=== PATIENT | female | born 1990 | race Caucasian/White ===

== ENCOUNTER 2021-09-11 13:24 | Outpatient (CLI) | payer OTHER, SELFPAY | END 2021-09-11 13:25 | disposition home or self-care (01) | LOC: WOUND 13:27 | PROVIDERS: PCP Family Medicine; Visit Provider Nurse Practitioner Family | DX: I83.028 Varicose veins of left lower extremity with ulcer other part of lower leg (principal); I87.332 Chronic venous hypertension (idiopathic) with ulcer and inflammation of left lower extremity; L97.825 Non-pressure chronic ulcer of other part of left lower leg with muscle involvement without evidence of necrosis; L03.116 Cellulitis of left lower limb | CPT/HCPCS: 11043; 99202 ==

== ENCOUNTER 2021-09-11 14:55 | Outpatient (CLI) | payer OTHER, SELFPAY ==
[2021-09-11 15:34] LABS: Basophils Absolute Auto 0.04 K/uL (0.00-0.30); Basophils Percent Auto 0.4 % (0.0-3.0); Eosinophils Absolute Auto 0.44 K/uL (0.00-0.50); Hematocrit 39.9 % (33.0-51.0); Hemoglobin* 13.1 gm/dL (12.0-16.0); Immature Granulocytes Abs Auto 0.11 K/uL (0.00-0.30); Lymphocytes Absolute Auto 2.91 K/uL (0.90-2.90); Lymphocytes Percent Auto 26.5 % (20-44); Mean Corpuscular HGB Conc 33 gm/dL (32-36); Mean Corpuscular Hemoglobin 30 pg (26-34); Mean Corpuscular Volume 91 fL (80-100); Monocytes Percent Auto 5.8 % (0.0-11.0); Neutrophils Absolute Auto 6.85 K/uL (1.7-7.0); Neutrophils Percent Auto 62.3 % (42.0-72.0); Platelet Count* 374 K/uL (140-440); RDW Coefficient of Variation % 12.8 % (11.5-15.5); Slide Review Reflex No; White Blood Count* 10.99 K/uL (4.50-11.00)
[2021-09-11 15:47] LABS: Hemoglobin A1C* 5.64 % (0-5.6)
[2021-09-11 15:55] LABS: Chloride* 104 mmol/L (96-114); Sodium* 137 mmol/L (135-149)
[2021-09-11 15:56] LABS: Potassium* 4.3 mmol/L (3.6-5.1)
[2021-09-11 15:58] LABS: Creatinine* 0.6 mg/dL (0.5-1.5); Estimated Glomerular Filt Rate 125 ml/min
[2021-09-11 15:59] LABS: Blood Urea Nitrogen* 15 mg/dL (5-24); Calcium* 9.1 mg/dL (8.4-10.6); Carbon Dioxide* 26 mmol/L (20-32); Glucose* 101 mg/dL (60-115)
[2021-09-11 16:02] LABS: C Reactive Protein* 2.7 mg/dL (0.5-1.0)
[2021-09-11 16:34] LABS: Ferritin* 61.3 ng/mL (6.24-137.0)
[2021-09-15 10:06] LABS: Prealbumin 20.2 mg/dL (20.0-40.0)
== END 2021-09-11 14:56 | disposition home or self-care (01) ==
PROVIDERS: PCP Family Medicine; Visit Provider Nurse Practitioner Family
DX: L97.223 Non-pressure chronic ulcer of left calf with necrosis of muscle (principal)
CPT/HCPCS: 36415; 80048; 82728; 83036; 84134; 84630; 85025; 86140; 87070; 87186

== ENCOUNTER 2021-09-18 13:28 | Outpatient (CLI) | payer OTHER, SELFPAY ==
--- NOTE | 2021-09-18 15:00 | CRLHL7_ITS ---
For Patients: As a result of the Cures Act, medical imaging exams and procedure reports are released immediately into your electronic medical record. You may view this report before your referring provider. If you have questions, please contact your health care provider. 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 Comparison: X-rays 01/16/2021 Findings: There is a soft tissue ulcer at the lateral aspect of the distal calf extending over a length of 3.0 cm and a depth of 0.7 cm. No soft tissue gas. Skin thickening noted along with subcutaneous edema. No fluid collection or abscess. No abnormal density within the fascial layers to suggest fasciitis. Chronic densities within the anterior subcutaneous fat. No fracture or osteochondral defect. No destructive osseous lesion or fracture. Impression: Lateral distal calf soft tissue ulcer with adjacent cellulitis. No osteomyelitis. No abscess. Please note that all CT scans at this facility use dose modulation, iterative reconstruction, and/or weight-based dosing when appropriate to reduce radiation dose to as low as reasonably achievable. Dictated by Jasen Acuna MD @ 09/19/2021 9:03:40 AM (Electronically Signed)
== END 2021-09-18 13:29 | disposition home or self-care (01) ==
PROVIDERS: PCP Family Medicine; Visit Provider Nurse Practitioner Family
DX: I83.022 Varicose veins of left lower extremity with ulcer of calf (principal); L97.223 Non-pressure chronic ulcer of left calf with necrosis of muscle; L03.116 Cellulitis of left lower limb
CPT/HCPCS: 11043; 73700

== ENCOUNTER 2021-09-18 16:23 | Outpatient (CLI) | payer OTHER, SELFPAY | END 2021-09-18 16:24 | disposition home or self-care (01) | LOC: LAB 16:24 | PROVIDERS: PCP Family Medicine; Visit Provider Nurse Practitioner Family | DX: L97.223 Non-pressure chronic ulcer of left calf with necrosis of muscle (principal) | CPT/HCPCS: 87070; 87186 ==

== ENCOUNTER 2021-09-25 13:27 | Outpatient (CLI) | payer OTHER, SELFPAY | END 2021-09-25 13:28 | disposition home or self-care (01) | LOC: WOUND 13:27 | PROVIDERS: PCP Family Medicine; Visit Provider Nurse Practitioner Family | DX: I87.332 Chronic venous hypertension (idiopathic) with ulcer and inflammation of left lower extremity (principal); L97.223 Non-pressure chronic ulcer of left calf with necrosis of muscle | CPT/HCPCS: 11043 ==

== ENCOUNTER 2021-10-02 13:26 | Outpatient (CLI) | payer OTHER, SELFPAY | END 2021-10-02 13:27 | disposition home or self-care (01) | LOC: WOUND 13:26 | PROVIDERS: PCP Family Medicine; Visit Provider Nurse Practitioner Family | DX: I87.332 Chronic venous hypertension (idiopathic) with ulcer and inflammation of left lower extremity (principal); L97.223 Non-pressure chronic ulcer of left calf with necrosis of muscle; R73.03 Prediabetes | CPT/HCPCS: 11043 ==

== ENCOUNTER 2021-10-09 13:38 | Outpatient (CLI) | payer OTHER, SELFPAY | END 2021-10-09 13:39 | disposition home or self-care (01) | LOC: WOUND 13:38 | PROVIDERS: PCP Family Medicine; Visit Provider Nurse Practitioner Family | DX: I87.332 Chronic venous hypertension (idiopathic) with ulcer and inflammation of left lower extremity (principal); L03.116 Cellulitis of left lower limb | CPT/HCPCS: 11042 ==

== ENCOUNTER 2021-10-16 12:32 | Outpatient (CLI) | payer OTHER, SELFPAY | END 2021-10-16 12:33 | disposition home or self-care (01) | LOC: WOUND 12:32 | PROVIDERS: PCP Family Medicine; Visit Provider Nurse Practitioner Family | DX: I87.332 Chronic venous hypertension (idiopathic) with ulcer and inflammation of left lower extremity (principal); L97.825 Non-pressure chronic ulcer of other part of left lower leg with muscle involvement without evidence of necrosis | CPT/HCPCS: 11042 ==

== ENCOUNTER 2021-10-23 13:35 | Outpatient (CLI) | payer OTHER, SELFPAY | END 2021-10-23 13:36 | disposition home or self-care (01) | LOC: WOUND 13:35 | PROVIDERS: PCP Family Medicine; Visit Provider Nurse Practitioner Family | DX: I87.332 Chronic venous hypertension (idiopathic) with ulcer and inflammation of left lower extremity (principal); L97.223 Non-pressure chronic ulcer of left calf with necrosis of muscle; R73.03 Prediabetes | CPT/HCPCS: 11043 ==

== ENCOUNTER 2021-10-30 13:02 | Outpatient (CLI) | payer OTHER, SELFPAY | END 2021-10-30 13:03 | disposition home or self-care (01) | LOC: WOUND 13:02 | PROVIDERS: PCP Family Medicine; Visit Provider Nurse Practitioner Family | DX: I83.022 Varicose veins of left lower extremity with ulcer of calf (principal); L97.825 Non-pressure chronic ulcer of other part of left lower leg with muscle involvement without evidence of necrosis | CPT/HCPCS: 11043 ==

== ENCOUNTER 2021-11-06 13:11 | Outpatient (CLI) | payer OTHER, SELFPAY | END 2021-11-06 13:12 | disposition home or self-care (01) | LOC: WOUND 13:11 | PROVIDERS: PCP Family Medicine; Visit Provider Nurse Practitioner Family | DX: I87.332 Chronic venous hypertension (idiopathic) with ulcer and inflammation of left lower extremity (principal); L97.223 Non-pressure chronic ulcer of left calf with necrosis of muscle | CPT/HCPCS: 11042 ==

== ENCOUNTER 2021-11-20 13:14 | Outpatient (CLI) | payer OTHER, SELFPAY | END 2021-11-20 13:15 | disposition home or self-care (01) | LOC: WOUND 13:14 | PROVIDERS: PCP Family Medicine; Visit Provider Nurse Practitioner Family | DX: I87.332 Chronic venous hypertension (idiopathic) with ulcer and inflammation of left lower extremity (principal); L97.225 Non-pressure chronic ulcer of left calf with muscle involvement without evidence of necrosis | CPT/HCPCS: 15271 ==

== ENCOUNTER 2021-11-27 13:17 | Outpatient (CLI) | payer OTHER, SELFPAY | END 2021-11-27 13:18 | disposition home or self-care (01) | LOC: WOUND 13:17 | PROVIDERS: PCP Family Medicine; Visit Provider Nurse Practitioner Family | DX: I87.332 Chronic venous hypertension (idiopathic) with ulcer and inflammation of left lower extremity (principal); L97.223 Non-pressure chronic ulcer of left calf with necrosis of muscle; R73.03 Prediabetes | CPT/HCPCS: 11042 ==

== ENCOUNTER 2021-12-11 11:39 | Outpatient (CLI) | payer OTHER, SELFPAY | END 2021-12-11 11:40 | disposition home or self-care (01) | PROVIDERS: PCP Family Medicine; Visit Provider Nurse Practitioner Family | DX: I87.332 Chronic venous hypertension (idiopathic) with ulcer and inflammation of left lower extremity (principal); L97.223 Non-pressure chronic ulcer of left calf with necrosis of muscle; R73.03 Prediabetes | CPT/HCPCS: 11042 ==

== ENCOUNTER 2021-12-11 16:20 | Outpatient (CLI) | payer OTHER, SELFPAY | END 2021-12-11 16:21 | disposition home or self-care (01) | LOC: LAB 16:20 | PROVIDERS: PCP Family Medicine; Visit Provider Nurse Practitioner Family | DX: L97.223 Non-pressure chronic ulcer of left calf with necrosis of muscle (principal) | CPT/HCPCS: 87070; 87186 ==

== ENCOUNTER 2021-12-25 13:35 | Outpatient (CLI) | payer OTHER, SELFPAY | END 2021-12-25 13:36 | disposition home or self-care (01) | LOC: WOUND 13:35 | PROVIDERS: PCP Family Medicine; Visit Provider Nurse Practitioner Family | DX: I87.332 Chronic venous hypertension (idiopathic) with ulcer and inflammation of left lower extremity (principal); L97.223 Non-pressure chronic ulcer of left calf with necrosis of muscle; R73.03 Prediabetes | CPT/HCPCS: 11043 ==

== ENCOUNTER 2022-01-22 13:32 | Outpatient (CLI) | payer OTHER, SELFPAY | END 2022-01-22 13:33 | disposition home or self-care (01) | LOC: WOUND 13:32 | PROVIDERS: PCP Family Medicine; Visit Provider Nurse Practitioner Family | DX: I87.332 Chronic venous hypertension (idiopathic) with ulcer and inflammation of left lower extremity (principal); L97.223 Non-pressure chronic ulcer of left calf with necrosis of muscle | CPT/HCPCS: 11042 ==

== ENCOUNTER 2022-03-19 14:13 | Outpatient (CLI) | payer BC, SELFPAY | END 2022-03-19 14:14 | disposition home or self-care (01) | PROVIDERS: PCP Family Medicine; Visit Provider Nurse Practitioner Family | DX: I87.312 Chronic venous hypertension (idiopathic) with ulcer of left lower extremity (principal); L97.825 Non-pressure chronic ulcer of other part of left lower leg with muscle involvement without evidence of necrosis; I89.0 Lymphedema, not elsewhere classified; I87.2 Venous insufficiency (chronic) (peripheral) | CPT/HCPCS: 11043; 99213 ==

== ENCOUNTER 2022-03-31 15:32 | Outpatient (CLI) | payer BC, SELFPAY | END 2022-03-31 15:33 | disposition home or self-care (01) | LOC: WOUND 15:32 | PROVIDERS: PCP Family Medicine; Visit Provider Nurse Practitioner Family | DX: I87.312 Chronic venous hypertension (idiopathic) with ulcer of left lower extremity (principal); L97.822 Non-pressure chronic ulcer of other part of left lower leg with fat layer exposed; I87.2 Venous insufficiency (chronic) (peripheral); I89.0 Lymphedema, not elsewhere classified | CPT/HCPCS: 11042 ==

== ENCOUNTER 2022-04-21 15:52 | Outpatient (CLI) | payer BC, SELFPAY | END 2022-04-21 15:53 | disposition home or self-care (01) | LOC: WOUND 15:52 | PROVIDERS: PCP Family Medicine; Visit Provider Nurse Practitioner Family | DX: I87.312 Chronic venous hypertension (idiopathic) with ulcer of left lower extremity (principal); L97.822 Non-pressure chronic ulcer of other part of left lower leg with fat layer exposed; I89.0 Lymphedema, not elsewhere classified | CPT/HCPCS: 11042 ==

== ENCOUNTER 2022-04-28 15:46 | Outpatient (CLI) | payer BC, SELFPAY | END 2022-04-28 15:47 | disposition home or self-care (01) | LOC: WOUND 15:47 | PROVIDERS: PCP Family Medicine; Visit Provider Nurse Practitioner Family | DX: I87.312 Chronic venous hypertension (idiopathic) with ulcer of left lower extremity (principal); L97.822 Non-pressure chronic ulcer of other part of left lower leg with fat layer exposed; I89.0 Lymphedema, not elsewhere classified | CPT/HCPCS: 11042 ==

== ENCOUNTER 2022-05-14 10:43 | Outpatient (CLI) | payer BC, SELFPAY | END 2022-05-14 10:44 | disposition home or self-care (01) | LOC: WOUND 10:43 | PROVIDERS: PCP Family Medicine; Visit Provider Nurse Practitioner Family | DX: I87.312 Chronic venous hypertension (idiopathic) with ulcer of left lower extremity (principal); L97.825 Non-pressure chronic ulcer of other part of left lower leg with muscle involvement without evidence of necrosis; I89.0 Lymphedema, not elsewhere classified | CPT/HCPCS: 11042 ==

== ENCOUNTER 2022-06-16 16:02 | Outpatient (CLI) | payer BC, SELFPAY | END 2022-06-16 16:03 | disposition home or self-care (01) | LOC: WOUND 16:02 | PROVIDERS: PCP Family Medicine; Visit Provider Nurse Practitioner Family | DX: I87.312 Chronic venous hypertension (idiopathic) with ulcer of left lower extremity (principal); L97.822 Non-pressure chronic ulcer of other part of left lower leg with fat layer exposed; I89.0 Lymphedema, not elsewhere classified; I87.2 Venous insufficiency (chronic) (peripheral) | CPT/HCPCS: 11042 ==

== ENCOUNTER 2022-07-28 15:57 | Outpatient (CLI) | payer BC, SELFPAY | END 2022-07-28 15:58 | disposition home or self-care (01) | LOC: WOUND 15:57 | PROVIDERS: PCP Family Medicine; Visit Provider Nurse Practitioner Family | DX: I87.312 Chronic venous hypertension (idiopathic) with ulcer of left lower extremity (principal); L97.822 Non-pressure chronic ulcer of other part of left lower leg with fat layer exposed; I89.0 Lymphedema, not elsewhere classified | CPT/HCPCS: 11042 ==

== ENCOUNTER 2022-08-11 15:57 | Outpatient (CLI) | payer BC, SELFPAY | END 2022-08-11 15:58 | disposition home or self-care (01) | LOC: WOUND 15:57 | PROVIDERS: PCP Family Medicine; Visit Provider Family Medicine | DX: I87.312 Chronic venous hypertension (idiopathic) with ulcer of left lower extremity (principal); L97.822 Non-pressure chronic ulcer of other part of left lower leg with fat layer exposed; I89.0 Lymphedema, not elsewhere classified | CPT/HCPCS: 11042 ==

== ENCOUNTER 2022-09-08 15:50 | Outpatient (CLI) | payer BC, SELFPAY | END 2022-09-08 15:51 | disposition home or self-care (01) | LOC: WOUND 15:50 | PROVIDERS: PCP Family Medicine; Visit Provider Nurse Practitioner Family | DX: I87.312 Chronic venous hypertension (idiopathic) with ulcer of left lower extremity (principal); L97.829 Non-pressure chronic ulcer of other part of left lower leg with unspecified severity; I89.0 Lymphedema, not elsewhere classified; I87.2 Venous insufficiency (chronic) (peripheral) | CPT/HCPCS: 99212 ==

== ENCOUNTER 2023-11-22 14:36 | Outpatient (CLI) | payer BC, SELFPAY ==
[2023-11-22 16:00] LABS: Hemoglobin A1C* 5.6 % (0-5.6)
== END 2023-11-22 14:37 | disposition home or self-care (01) ==
LOC: WOUND 14:36
PROVIDERS: PCP Family Medicine; Visit Provider Nurse Practitioner Family
DX: I87.312 Chronic venous hypertension (idiopathic) with ulcer of left lower extremity (principal); L97.322 Non-pressure chronic ulcer of left ankle with fat layer exposed; I89.0 Lymphedema, not elsewhere classified; Z13.1 Encounter for screening for diabetes mellitus
CPT/HCPCS: 36415; 83036; 97597; G0463

== ENCOUNTER 2023-12-06 14:49 | Outpatient (CLI) | payer BC, SELFPAY | END 2023-12-06 14:50 | disposition home or self-care (01) | LOC: WOUND 14:50 | PROVIDERS: PCP Family Medicine; Visit Provider Nurse Practitioner Family | DX: I87.312 Chronic venous hypertension (idiopathic) with ulcer of left lower extremity (principal); I89.0 Lymphedema, not elsewhere classified; L97.322 Non-pressure chronic ulcer of left ankle with fat layer exposed | CPT/HCPCS: 97597 ==

== ENCOUNTER 2023-12-13 14:45 | Outpatient (CLI) | payer BC, SELFPAY | END 2023-12-13 14:46 | disposition home or self-care (01) | LOC: WOUND 14:45 | PROVIDERS: PCP Family Medicine; Visit Provider Nurse Practitioner Family | DX: I87.312 Chronic venous hypertension (idiopathic) with ulcer of left lower extremity (principal); I89.0 Lymphedema, not elsewhere classified; L97.328 Non-pressure chronic ulcer of left ankle with other specified severity | CPT/HCPCS: 97597 ==